=== PATIENT | female | born 1970 | race Caucasian/White ===

== ENCOUNTER → 2019-02-11 | Outpatient (CLI) | payer OTHER ==
--- NOTE | 2019-02-11 16:55 | EXE ---
[place] [address] STRESS ECHOCARDIOGRAM Name: ROMELIA ENRIQUEZ Room: [facility]#: [id number] Admission: 02/11/19 Attend Phys: Flor Celis, Discharge: Date of : 70 Date of Service: 02/11/19 1654 Report #: [id number] THIS REPORT FOR: //name// APPROVED REPORT Study performed: 02/11/2019 15:38:25 Exam: Stress Echocardiogram Indication: Dyspnea Patient Location: Out-Patient Stress Nurse: Latrice Mo RN Supervising Physician: Tello Wolff MD Ht: 5 ft 3 in HR: 72 bpm BP: 114/79 mmHg Medical History Cardiac Risk Factors: Hyperlipidemia, Diabetes (non-insulin), FHX of CAD Procedure The patient underwent an Exercise Stress Test using the Rainer Protocol. Blood pressure, heart rate, and EKG were monitored. An Echocardiogram was performed by stress test technician in four stages in quad fashion. At peak stress, four selected images were obtained and placed side by side with resting images for comparison. Stress Test Details Stress Test: Exercise stress testing was performed using a Rainer protocol. HR Resting HR: 72 bpm Max Heart Rate (APMHR): 172 bpm Max HR Achieved: 169 bpm Target HR (85% APMHR): 146 bpm % of APMHR: 98 Recovery HR: 94 bpm HR response to stress: Normal HR response to stress BP Resting BP: 114/79 mmHg Max BP: 182/79 mmHg Recovery BP: 122/80 mmHg BP response to stress: Normal blood pressure response to stress. ECG Resting ECG: Sinus Rhythm [address] [address] STRESS ECHOCARDIOGRAM Name: ROMELIA ENRIQUEZ Room: [facility]#: [id number] Admission: 02/11/19 Attend Phys: Flor Celis, Discharge: Date of : 70 Date of Service: 02/11/19 1654 Report #: [id number] Stress ECG: Sinus Tachycardia ST Change: None Arrhythmia: None Recovery ECG: Sinus Rhythm Recovery ST Change: None Recovery Arrhythmia: None Clinical Reason for Termination: Completed protocol Exercise duration: 8 min 58 sec Highest Stage Achieved: Stage 3: 3.4 mph at 14% grade. Exercise capacity: 10.16 METs The patient had no significant cardiac symptoms with standard Rainer protocol exercise. Stress ECG Conclusion The baseline 12-lead EKG shows sinus rhythm without significant ST or T wave abnormality. EKGs obtained during and post exercise showed sinus rhythm and sinus tachycardia with no significant ST or T wave changes when compared to baseline. There were no stress-induced arrhythmias. Pre-Stress Echo The resting Echocardiogram showed normal left ventricular contractility with an estimated Ejection Fraction of about 60-65%. Normal wall motion in all segments on baseline images. Post-Stress Echo The stress Echocardiogram showed normal left ventricular contractility with an estimated Ejection Fraction of about >70%. Normal augmentation of wall motion in all segments on post stress images. Clinical No clinical or ECG evidence for ischemia. Conclusion Clinical Response: Non-ischemic Exercise Capacity: Average Stress ECG Response: Non-ischemic Stress Echo Images: [place] [address] STRESS ECHOCARDIOGRAM Name: ROMELIA ENRIQUEZ Room: [facility]#: [id number] Admission: 02/11/19 Attend Phys: Flor Celis, Discharge: Date of : 70 Date of Service: 02/11/191653 Report #: [id number] Other Information Study Quality: Good <ELECTRONICALLY SIGNED> By: Miguel Gill MD, FACC 02/11/191653 53 53 Miguel Gill MD, FACC /INF
== END ==
LOC: M.CRD 02-04 15:00
DX: R06.00 Dyspnea, unspecified (principal); R00.2 Palpitations; I25.10 Atherosclerotic heart disease of native coronary artery without angina pectoris; E78.5 Hyperlipidemia, unspecified; E11.9 Type 2 diabetes mellitus without complications; Z82.49 Family history of ischemic heart disease and other diseases of the circulatory system

== ENCOUNTER → 2019-02-12 | Outpatient (CLI) | payer OTHER | LOC: M.RAD 10:33 | DX: Z12.31 Encounter for screening mammogram for malignant neoplasm of breast (principal) ==

== ENCOUNTER → 2019-03-08 | Outpatient (CLI) | payer OTHER | LOC: M.RAD 02-14 16:27 | DX: N60.01 Solitary cyst of right breast (principal); N60.02 Solitary cyst of left breast ==